=== PATIENT | female | born 1960 | race Caucasian/White ===

== ENCOUNTER 2022-09-01 11:21 | Day surgery (SDC) | payer OTHER, SELFPAY ==
--- NOTE | 2022-09-01 | PATH_ITS ---
[facility] Accession Number: [id number] No. of containers..04 Tissue . 01 Material submitted: . PART A: colon - GE ANASTAMOSIS PART B: colon - ASCENDING COLON POLYP PART C: colon - RANDOM COLON PART D: rectum - RECTAL POLYP . 01 Diagnosis: A. Specimen Designated GE Anastomosis, Biopsy: Gastric and small bowel-type mucosa with minimal chronic non-specific inflammation. No active inflammation, infectious organisms, dysplasia or malignancy identified. . B. Ascending Colon Polyp, Biopsy: Tubular adenoma. . C. Random Colon, Biopsy: Colonic mucosa with no diagnostic abnormality. Negative for active, chronic, and microscopic colitis. Negative for dysplasia and malignancy. . D. Rectal Polyp, Biopsy: Tubular adenoma. [facility] 09/04/2022 1512 Local . 01 Electronically signed: . Claudia Kohli MD, Pathologist NPI- [id number] . 01 Gross description: . Part A: GE ANASTAMOSIS: Received in formalin is 1 fragment(s) of trevino, soft tissue measuring 0.3 x 0.2 x 0.1 cm submitted entirely in 1 cassette(s) Part B: ASCENDING COLON POLYP: Received in formalin is 1 fragment(s) of trevino, soft tissue measuring 0.2 x 0.1 x 0.1 cm submitted entirely in 1 cassette(s) Part C: RANDOM COLON: Received in formalin are 2 fragment(s) of trevino, soft tissue measuring 0.2 x 0.1 x 0.1 cm to 0.1 x 0.1 x 0.1 cm submitted entirely in 1 cassette(s) Part D: RECTAL POLYP: Received in formalin is 1 fragment(s) of trevino, soft tissue measuring 0.2 x 0.1 x 0.1 cm submitted entirely in 1 cassette(s) /CPE . B. Received in formalin and labeled endocervical curettage, are minute fragments of mucoid and hemorrhagic material measuring 1.0 x 0.7 x 0.1 cm, in aggregate. All fragments are totally submitted in cassette B1. ([id number]) /CPE 09/04/2022 0844 Local . 01 Pathologist provided ICD-10: D12.2, D12.8 . 01 CPT . 319847, 264621, 979377, 516244 Specimen Comment: A courtesy copy of this report has been sent to [phone] Performed at: 01 [facility] [address] [place] [address] Suite [facility], [place], [place] [id number] MD Ty Baron MD Phone: [phone]
[2022-09-01] MEDS: LACTATED RINGERS 1,000 ML 120 ML IV (12:13)
[2022-09-01 12:27] VITALS: BP 147/85; PULSE 86; RESP 16; TEMP 36.9; O2SAT 97; BMI 31.2
--- NOTE | 2022-09-01 13:07 | PM.HP.1 ---
History of Present Illness History of Present Illness Date Patient Seen: 09/01/22 Time Patient Seen: 13:07 Chief complaint: EGD/Colonoscopy Narrative: Here for early satiety weight loss altered bowel habits. I reviewed my office note. She is still having an element of diarrhea. [facility] Social History household members: spouse Smoking Status: Never smoker alcohol intake: never Meds Home Medications and Allergies Allergies Allergy/AdvReac Type Severity Reaction Status Date / Time No Known Drug Allergies Allergy Verified 09/01/22 12:18 Review of Systems Review of Systems ROS: Yes All systems reviewed with the patient and are negative except as otherwise documented Exam Vital Signs (past 8 hours): - 09/01/22 12:27 Temperature 98.4 F Pulse Rate 86 Respiratory Rate 16 Blood Pressure 147/85 H Pulse Oximetry 97 Oxygen Delivery Method Room Air Oxygen Delivery Method Room Air Const General: cooperative HENMT Head: normal to inspection Eyes General: appearance normal, both eyes and all related structures Neck Neck: normal visual inspection Chest Chest: normal inspection of the chest Resp Effort & Inspection: normal respiratory effort Cardio Rate: regular rate GI Inspection: normal to inspection Skin General: no rashes or lesions noted Neuro General: patient alert and patient awake Extrem General: normal to inspection and no pedal edema Psych Appearance: grossly normal Assessment & Plan Assessment & Plan narrative: 61-year-old female with alcoholism. It is unknown whether she actually has cirrhosis. She has however had some weight loss early satiety altered bowel habits diarrhea. Both upper and lower endoscopy are pursued today.
--- NOTE | 2022-09-01 13:09 | PM.PREOP ---
Pre-operative Note Interval Note History & Physical reviewed/Exam performed by Physician: Yes Changes to H&P: Yes ASA Class (for procedural sedation): III
[2022-09-01 14:40] VITALS: BP 92/62; PULSE 89; RESP 17; TEMP 36.5; O2SAT 98
[2022-09-01 14:43] VITALS: BP 104/66; PULSE 77; RESP 14; O2SAT 100
--- NOTE | 2022-09-01 14:46 | PM.OP.EC ---
Operative Date/Time/Diagnoses Date of procedure: 09/01/22 Time of procedure: 14:46 Pre-op diagnosis: Early satiety weight loss altered bowel habit diarrhea Post-op diagnosis: same Procedure & Clinicians Study performed: EGD with biopsy and colonoscopy with cold forceps polypectomy and biopsies Same procedure as scheduled: Yes Indications: Early satiety weight loss altered bowel habit diarrhea Surgeon: John Otoole Procedure Notes SCOAP/Timeout: Done Procedure in detail: After the risks and benefits were explained, written and verbal informed consent was obtained. The patient was brought into the procedure room and placed into the left lateral decubitus position. Please see anesthesia notes for sedation details. The scope was introduced into the mouth through the bite block and advanced under direct visualization to the efferent and afferent limb. The scope was slowly withdrawn carefully examining the mucosa for any defects or lesions. Retroflexed views were accomplished in the stomach. The stomach was decompressed, the scope was then removed from the patient who tolerated the procedure well. Patient was then turned around a digital rectal examination was accomplished the scope was introduced into the rectum and advanced to the cecum as identified by the appendiceal orifice and ileocecal valve. The scope was slowly withdrawn to carefully examine the mucosa for any defects or lesions. Multiple direct views were made through the dentate line. The colon was decompressed. The scope was removed from the patient who tolerated the procedure well. Bowel prep fair with copious irrigation rendered adequate. Pediatric colonoscope Scope withdrawal time: 16 minutes Sedation minutes: 31 Complications: none Impression: 1. Esophagus: No significant pathology. Subtle sliding hiatal hernia. GEJ at 30 cm from the incisors. No varices. 2. Stomach: There was a normal-sized gastric pouch. The patient has a gastric bypass anatomy. The GJ junction was widely patent. I did take a biopsy from the irregular appearing edge of the anastomosis. There was some subtle erosive and superficial ulcerative change at the anastomosis consistent with mild marginal ulceration. 3. Efferent limb: This appeared normal 4. Afferent limb this appeared normal as well. 5. Colon: No colitis throughout. Random colon biopsies were taken for exclusion of microscopic colitis. There was a small colon polyp in the ascending colon removed with cold forceps. There was another small colon polyp in the rectum removed with cold forceps. Both of these were perhaps 3-4 mm in greatest dimension. There was a small possible polyp in the descending colon initially seen but the patient went into fairly significant spasms and we could not identify this after an exhaustive search. 6. Terminal ileum this appeared visually normal. Endoscopic diagnosis 1. Gastric bypass anatomy 2. Small hiatal hernia 3. Mild marginal ulceration 4. Colon polyps 5. Otherwise visually unremarkable colonoscopy Post-procedure Plan for aftercare: 1. Await histopathology 2. Repeat colonoscopy will likely be suggested for 3 years 3. Follow up GI clinic. Disposition: PACU
[2022-09-01 14:49] VITALS: BP 124/77; PULSE 78; RESP 9; TEMP 36.4; O2SAT 99
[2022-09-01 14:51] VITALS: BP 130/79; PULSE 79; RESP 20; O2SAT 98
== END 2022-09-01 15:15 | disposition home or self-care (01) ==
PROVIDERS: PCP Nurse Practitioner; Referring Provider Internal Medicine Gastroenterology; Visit Provider Internal Medicine Gastroenterology
PROC: 0DJ08ZZ Inspection of Upper Intestinal Tract, Via Natural or Artificial Opening Endoscopic (ICD-10-PCS; CPT 43235; principal; 2022-09-01 13:00)
PROC: 0DJD8ZZ Inspection of Lower Intestinal Tract, Via Natural or Artificial Opening Endoscopic (ICD-10-PCS; CPT 45378; 2022-09-01 13:00)
DX: R19.7 Diarrhea, unspecified (principal); R63.4 Abnormal weight loss; R68.81 Early satiety; Z98.84 Bariatric surgery status; K44.9 Diaphragmatic hernia without obstruction or gangrene; K25.9 Gastric ulcer, unspecified as acute or chronic, without hemorrhage or perforation; K29.50 Unspecified chronic gastritis without bleeding; D12.2 Benign neoplasm of ascending colon; D12.6 Benign neoplasm of colon, unspecified; D12.8 Benign neoplasm of rectum
CPT/HCPCS: 45380; 43239; J2704